=== PATIENT | female | born 1950 | race Caucasian/White ===

== ENCOUNTER 2017-08-03 07:28 | Outpatient (CLI) | payer MEDICARE, OTHER ==
--- NOTE | 2017-08-03 09:29 | CT ---
CT OF THE ABDOMEN AND PELVIS WITH AND WITHOUT CONTRAST WITH MULTIPHASE IMAGING: History: 67-year-old female with microscopic hematuria and history of three bladder infections in one year. Pr ior hysterectomy. FINDINGS: The lung bases are clear. The liver demonstrates a very small less than 1 cm diameter cyst. The gallb ladder, pancreas, spleen, adrenal glands are unremarkable without acute process. There is a small pun ctate calcification within the region of the head of the pancreas adjacent to the pancreatic duct but not within the pancreatic duct. No renal calculi or acute obstruction. No CT evidence of acute ap pendicitis. The uterus and bladder appear unremarkable. IMPRESSION: Too small to characterize low attenuation focus in the liver, but statistically a small cyst. Very sm all punctate 0.2 cm calcification in the region of the pancreas adjacent to the pancreatic duct witho ut ductal dilatation. This calcification is not a calculus within the duct. No evidence of other sign ificant acute process. POS: BETTY
== END 2017-08-03 07:29 | disposition home or self-care (01) ==
LOC: SCSCT 07:28
PROVIDERS: ATTEND Urology
DX: R31.21 Asymptomatic microscopic hematuria (principal); K86.89 Other specified diseases of pancreas; K76.89 Other specified diseases of liver
CPT/HCPCS: 74178; 82565

== ENCOUNTER 2017-11-16 09:17 | Outpatient (CLI) | payer MEDICARE | END 2017-11-16 09:18 | disposition home or self-care (01) | LOC: BICMAMMO 09:17 | PROVIDERS: ATTEND Internal Medicine | DX: M85.89 Other specified disorders of bone density and structure, multiple sites (principal) | CPT/HCPCS: 77080 ==